=== PATIENT | male | born 1985 | race African-American/Black ===

== ENCOUNTER 2024-09-30 08:53 | Emergency (ER) | payer OTHER ==
[~2024-09-30] VITALS: Ht 167.6 cm; Wt 64.0 kg
[2024-09-30 09:05] VITALS: TEMP 97.9; O2SAT 99
[2024-09-30] MEDS: FLUORESCEIN SODIUM 1MG/STRIP EACHEYE ONE (10:15)
[2024-09-30] MEDS: TETRACAINE 0.5% OPHTH DROPS 4ML BOTHEYE ONE (10:15)
[2024-09-30] MEDS ORDERED: KETO-98 EACHEYE (10:16)
[2024-09-30] MEDS ORDERED: POLY15DR17 EACHEYE (10:17)
[2024-09-30 10:41] VITALS: BP 128/84; PULSE 64; RESP 14; O2SAT 99
== END 2024-09-30 10:42 | disposition home or self-care (01) ==
LOC: ER 08:53
DX: H10.213 Acute toxic conjunctivitis, bilateral (principal)
CPT/HCPCS: 99283

== ENCOUNTER 2025-08-05 13:53 | Emergency (ER) | payer MEDICAID, OTHER ==
[~2025-08-05] VITALS: Ht 172.7 cm; Wt 70.5 kg
[~2025-08-05 13:53] MED LIST: KETO-98 EACHEYE; POLY15DR17 EACHEYE
[2025-08-05 13:55] VITALS: O2SAT 99
[2025-08-05 14:04] VITALS: BP 133/64; PULSE 66; RESP 16; TEMP 37; O2SAT 100
== END 2025-08-05 17:45 | disposition left against medical advice (07) ==
LOC: ER 13:53
DX: R51.9 Headache, unspecified (principal); Z53.21 Procedure and treatment not carried out due to patient leaving prior to being seen by health care provider
CPT/HCPCS: 99281